=== PATIENT | male | born 1960 | race African-American/Black ===

== ENCOUNTER 2020-10-16 09:13 | Outpatient (CLI) | payer OTHER | END 2020-10-16 09:14 | disposition home or self-care (01) | LOC: BICULT 09:13 | DX: B19.20 Unspecified viral hepatitis C without hepatic coma (principal) | CPT/HCPCS: 76705 ==

== ENCOUNTER 2020-12-17 18:44 | Observation (INO) | payer OTHER ==
[2020-12-17] MEDS ORDERED: Famotidine/PF 20 mg/2ml Vial ONE (19:47)
[2020-12-17] MEDS ORDERED: Sucralfate 1 GM/10 ML UDCUP ONE (19:47)
[2020-12-17] MEDS ORDERED: Acetaminophen 500 MG TAB ONE (19:47)
[2020-12-17 20:20] LABS: #Basophils 0.1 thou/uL (0.0-0.2); #Eosinphils 0.8 thou/uL (0.0-0.7); #Lymphocytes 3.5 thou/uL (1.20-3.40); #Monocytes 0.8 thou/uL (0.11-0.59); #Neutrophils 3.7 thou/uL (1.40-6.50); %Eosinophils 9.2 % (0.0-10.0); %Lymphocytes 39.5 % (21.0-51.0); %Monocytes 9.3 % (0.0-10.0); Hemoglobin 12.2 g/dL (14.0-18.0); Mean Corpuscular HGB CONC 34.8 g/dL (32.0-36.0); Mean Corpuscular Hemoglobin 32.5 pg (27.0-31.0); Mean Corpuscular Volume 93.4 fL (78.0-98.0); Mean Platelet Volume 9.2 fL (7.4-10.4); Platelet Count 152 thou/uL (130-400); RBC Distribution Width 11.8 % (11.5-14.5); Red Blood Cell (RBC) Count 3.74 mill/uL (4.70-6.10); White Blood Cell (WBC) Count 8.9 thou/uL (4.8-10.8)
[2020-12-17 20:36] LABS: ALT (SGPT) 12 U/L (8-55); AST (SGOT) 14 U/L (5-34); Albumin 3.7 g/dL (3.4-4.8); Alkaline Phosphatase 76 U/L (40-110); Anion Gap 10 mmol/L (10-20); BUN (Urea Nitrogen) 9 mg/dL (8.4-25.7); Bilirubin, Total 0.9 mg/dL (0.2-1.2); Calc. Creatinine Clearance 0 mL/min (70-130); Calcium 8.8 mg/dL (7.8-10.44); Carbon Dioxide 28 mmol/L (23-31); Chloride 101 mmol/L (98-107); Globulin 3.8 g/dL (2.4-3.5); Glucose 136 mg/dL (80-115); Lipase 12 U/L (8-78); Potassium 3.3 mmol/L (3.5-5.1); Protein, Total 7.5 g/dL (5.8-8.1); Sodium 136 mmol/L (136-145)
[2020-12-17 20:56] LABS: CKMB 2.6 ng/mL (0-6.6)
[2020-12-17] MEDS ORDERED: Aspirin Chewable 81 MG TAB ONE (22:04)
[2020-12-17] MEDS ORDERED: Potassium Chloride 20 MEQ TAB ONE (22:07)
[2020-12-17] MEDS ORDERED: Atenolol 50 MG TAB PO SCH (22:15)
[2020-12-18 00:03] LABS: Troponin I 0.107 ng/mL (< 0.028)
[2020-12-18] MEDS ORDERED: Acetaminophen 650 MG Suppository PR PRN (00:12)
[2020-12-18] MEDS ORDERED: Ondansetron ODT 4 MG TAB PO PRN (00:12)
[2020-12-18] MEDS ORDERED: Acetaminophen 325 MG TAB PO PRN (00:12)
[2020-12-18] MEDS ORDERED: Ondansetron PF 4 MG/2 ML Vial IVP PRN (00:12)
[2020-12-18] MEDS ORDERED: Insulin Regular 300 UNITS/3 ML VIAL SC PRN ×2 (00:14)
[2020-12-18] MEDS ORDERED: Dextrose 50% Abboject 50 ML SYRINGE SLOW IVP PRN (00:14)
[2020-12-18] MEDS ORDERED: Dextrose 5% in Water 1,000 ML IV PRN (00:14)
[2020-12-18] MEDS ORDERED: Aspirin 325 MG TAB PO SCH (00:15)
[2020-12-18] MEDS ORDERED: Potassium Chloride 20 MEQ TAB PO SCH ×2 (00:30→07:45)
[2020-12-18 00:53] LABS: Magnesium 1.8 mg/dL (1.6-2.6)
[2020-12-18] MEDS ORDERED: Melatonin 3 MG TAB PO PRN (02:40)
[2020-12-18 03:42] LABS: #Basophils 0.1 thou/uL (0.0-0.2); #Eosinphils 0.9 thou/uL (0.0-0.7); #Lymphocytes 3.8 thou/uL (1.20-3.40); #Monocytes 0.7 thou/uL (0.11-0.59); %Basophils 1.3 % (0.0-1.0); %Monocytes 8.2 % (0.0-10.0); %Neutrophils 35.4 % (42.0-75.0); Hemoglobin 11.8 g/dL (14.0-18.0); Mean Corpuscular HGB CONC 33.5 g/dL (32.0-36.0); Mean Corpuscular Hemoglobin 31.5 pg (27.0-31.0); Mean Corpuscular Volume 94.1 fL (78.0-98.0); Mean Platelet Volume 9.9 fL (7.4-10.4); Platelet Count 153 thou/uL (130-400); RBC Distribution Width 11.8 % (11.5-14.5); Red Blood Cell (RBC) Count 3.75 mill/uL (4.70-6.10); White Blood Cell (WBC) Count 8.5 thou/uL (4.8-10.8)
[2020-12-18] MEDS ORDERED: Acetaminophen 325 MG TAB ONE (03:47)
[2020-12-18 03:50] LABS: Anion Gap 8 mmol/L (10-20); BUN (Urea Nitrogen) 8 mg/dL (8.4-25.7); Calc. Creatinine Clearance 0 mL/min (70-130); Calcium 8.9 mg/dL (7.8-10.44); Carbon Dioxide 29 mmol/L (23-31); Cardiac Risk 3.5 (Less than 4.5); Chloride 103 mmol/L (98-107); Cholesterol 132 mg/dl (< 200 Desired); Glucose 198 mg/dL (80-115); HDL Cholesterol 38 mg/dL (>60 Neg Risk); LDL Cholesterol, Calculated 66 mg/dL; Potassium 3.3 mmol/L (3.5-5.1); Sodium 137 mmol/L (136-145); Triglycerides 139 mg/dL (Less than 150)
[2020-12-18 03:53] LABS: Troponin I 0.122 ng/mL (< 0.028)
[2020-12-18] MEDS ORDERED: Nitroglycerin 2% Ointment 1 INCH/1 GM Packet TOP SCH (06:00)
[2020-12-18] MEDS ORDERED: Nitroglycerin 2% Ointment 1 INCH/1 GM Packet ONE (06:45)
[2020-12-18] MEDS ORDERED: traMADol HCl 50 MG TAB PO PRN (07:36)
[2020-12-18] MEDS ORDERED: GUAIFENESIN SF SOLN 200 MG/10 ML UDCUP PO PRN (07:38)
[2020-12-18] MEDS ORDERED: Bisacodyl 5 MG TAB PO PRN (07:38)
[2020-12-18] MEDS ORDERED: Calcium Carbonate 500 MG ChewTAB PO PRN (07:38)
[2020-12-18] MEDS ORDERED: Hydrocerin (Eucerin) Cream 120 gm Jar TOP PRN (07:38)
[2020-12-18] MEDS ORDERED: Artificial Tear Sol 15 ML BOT EA EYE PRN (07:38)
[2020-12-18] MEDS ORDERED: Cepastat Lozenges 1 LOZ PO PRN (07:38)
[2020-12-18] MEDS ORDERED: hydrALAZINE 20 MG/ML VIAL SLOW IVP PRN (07:38)
[2020-12-18] MEDS ORDERED: Loperamide HCl 2 MG CAP PO PRN (07:38)
[2020-12-18] MEDS ORDERED: Sodium Chloride 0.65% Nasal 44 ML BOT EA NARE PRN (07:38)
[2020-12-18] MEDS ORDERED: Senokot S 8.6-50 MG TAB PO PRN (07:38)
[2020-12-18] MEDS ORDERED: HYDROcodone/Acetaminophen 5/325 mg Tablet PO PRN (07:38)
[2020-12-18] MEDS ORDERED: Loratadine 10 MG TAB PO PRN (07:38)
[2020-12-18 07:56] VITALS: BMI 28.1
[2020-12-18] MEDS ORDERED: Lisinopril 20 MG TAB PO SCH (09:00)
[2020-12-18] MEDS ORDERED: Aspirin Chewable 81 MG TAB PO SCH (09:00)
[2020-12-18] MEDS ORDERED: Amlodipine 10 MG TAB PO SCH (09:00)
[2020-12-18] MEDS ORDERED: Enoxaparin Sodium 80 MG/0.8 ML SYRINGE SC SCH (09:00)
[2020-12-18] MEDS: hydrALAZINE 25 MG TAB PO SCH ×2 (09:13→14:19)
[2020-12-18] MEDS ORDERED: Ketorolac Tromethamine 30 MG/ML VIAL IVP SCH (09:45)
[2020-12-18 11:07] LABS: Magnesium 1.9 mg/dL (1.6-2.6); Phosphorus 2.9 mg/dL (2.3-4.7)
[2020-12-18] MEDS ORDERED: Ibuprofen 600 MG TAB PO SCH (12:00)
[2020-12-18 13:24] VITALS: BP 162/79; TEMP 98
[2020-12-18 20:06] LABS: SARS-CoV-2 PCR by NAA Not Detected (NotDetected)
[2020-12-18] MEDS ORDERED: Atorvastatin Calcium 40 MG TAB PO SCH ×2 (21:00)
[2020-12-18] MEDS ORDERED: Lantus 1000 UNITS/10 ML VIAL SC SCH (21:00)
== END 2020-12-18 16:20 ==
LOC: ERS 18:44 → ERHOLD 22:24 → 2SW 12-18 07:23
PROVIDERS: ADMIT Student in an Organized Health Care Education/Training Program; ATTEND Internal Medicine
DX: R07.89 Other chest pain (principal); R77.8 Other specified abnormalities of plasma proteins; E87.6 Hypokalemia; E11.42 Type 2 diabetes mellitus with diabetic polyneuropathy; I10 Essential (primary) hypertension; F17.210 Nicotine dependence, cigarettes, uncomplicated; E78.5 Hyperlipidemia, unspecified; R16.0 Hepatomegaly, not elsewhere classified; Z91.14 Patient's other noncompliance with medication regimen; Z79.84 Long term (current) use of oral hypoglycemic drugs; Z79.899 Other long term (current) drug therapy; Z88.8 Allergy status to other drugs, medicaments and biological substances; Z20.822 Contact with and (suspected) exposure to COVID-19
CPT/HCPCS: 36415; 36416; 71045; 80048; 80053; 80061; 82553; 83690; 83735; 83880; 84100; 84443; 84484; 85025; 93005; 93017; 96374; 96375; G0378; J1885; S0028; U0003; U0005